=== PATIENT | male | born 1990 | race Caucasian/White ===

== ENCOUNTER 2023-01-08 08:00 | Emergency (ER) | payer OTHER ==
[2023-01-08] MEDS ORDERED: Ondansetron 4 MG/2 ML SDV IVPUSH ONE (08:19)
[2023-01-08] MEDS ORDERED: LORazepam 2 MG/ML SDV IVPUSH ONE (08:19)
[2023-01-08] MEDS ORDERED: Sodium Chloride 0.9% 1,000 ML IV ONE (08:19)
[2023-01-08 08:44] LABS: ESTIMATED GFR 83 mL/min (>60)
[2023-01-08 11:57] VITALS: BP 139/93; PULSE 97
== END 2023-01-08 10:00 | disposition home or self-care (01) ==
LOC: FB.ED 08:00
DX: K52.9 Noninfective gastroenteritis and colitis, unspecified (principal); F41.0 Panic disorder [episodic paroxysmal anxiety]; K22.6 Gastro-esophageal laceration-hemorrhage syndrome; E86.0 Dehydration; Z88.0 Allergy status to penicillin; Z87.891 Personal history of nicotine dependence
CPT/HCPCS: 36415; 80053; 85025; 96361; 96374; 96375; 99284; 99284-25; J2060; J2405; J7030